=== PATIENT | female | born 1935 | race Caucasian/White ===

== ENCOUNTER 2023-11-27 00:48 | Inpatient (IN) | payer MEDICARE, BC, SELFPAY ==
[2023-11-26] VITALS (7 sets, daily range): BP systolic 100–174; BP diastolic 44–107; BMI 18.1
[2023-11-26] MEDS: ZOFRAN ODT (ORALLY DISINTEGRATING) 8 MG PO (16:12)
[2023-11-26] MEDS: DILAUDID 1 MG IM ×2 (16:12→19:55)
--- NOTE | 2023-11-26 17:24 | ED.GENMED ---
History of Present Illness
General
Chief Complaint: Musculo-Skeletal Complaint
Source: patient, records and family
Exam Limitations: none
Time Seen by Provider: 11/26/23 16:03
Nursing documentation reviewed up to this point in time: agreed with
History of Present Illness
History of Present Illness:
Patient is a 88-year-old eseln-lotv-sajghpet female presents to the emergency department complaining of left upper extremity pain. Patient fell prior to coming to the ER and injured her arm. Patient not remember striking her head but her niece
states there is a bruise on her scalp that was not there previously. Patient denies numbness or paresthesias. Patient denies any neck pain. Patient states her shoes got caught on the floor. Denies how she fell. Patient denies syncope, loss of
consciousness, nausea or vomiting. Patient denies any visual or speech changes. Patient denies focal weakness or ataxia. Patient denies chest pain, shortness of breath or palpitations. Patient denies any GI symptoms. Patient has a history of
right breast cancer with node dissection. Patient did receive radiation therapy.
Past History
Past History
ED Past Medical History: Arrthythmia, Cancer, HTN and Other (IBS)
Social History
Tobacco: Non-smoker
Review of Systems
Review of Systems
All Other Systems: Not applicable
Phy Exam
Physical Exam
Physical Exam:
Physical Exam
General: significant distress, alert and appropriate, elderly and frail, well hydrated
HENT: Normocephalic with approximately 2 cm area of ecchymosis to the left frontotemporal region. No tenderness., supple with no tracheal deviation or contusion
Eyes: Clear sclera, conjuctiva without injection
Heart: Regular rhythm and rate. No S3, S4. No murmur.
Lungs: No respiratory distress, no stridor, lung sounds clear and equal bilaterally, chest wall symmetrical and nontender
Abdomen: Soft, nontender, BS good
Neuro: Alert and usual mental status, CN II - XII intact, no motor focality
Skin: no wounds
Psychiatric: well kept. interactive and cooperative
Extremities: No edema, cyanosis. Left distal upper arm tenderness and fullness with swelling. Increased with any range of motion. Left shoulder and left forearm nontender. Neurovascularly intact. No hip or pelvic
tenderness
Musculoskeletal: No cervical, thoracic or lumbar spine tenderness
Course
Orders/Labs/Results
Orders:
Orders
11/26/23 16:08
HYDROmorphone [Dilaudid] 1 mg IM NOW STA
Ondansetron Orally Disint [Zofran Odt (Orally Disintegrating)] 8 mg PO NOW STA
Humerus, Left 2 Views [CR Humerus - Left Min 2 Views*] Urgent
Comment:
Reason For Exam: fall pain
11/26/23 17:25
CT Head W/o Iv Contrast Urgent
Comment:
Reason For Exam: fell with contusion left frontotemporal
Vital Signs
Initial and Last Documented VS:
Initial Vital Signs
Temp Pulse Resp BP Pulse Ox
97.8 F 68 18 161/69 100
11/26/23 15:41 11/26/23 15:41 11/26/23 15:41 11/26/23 15:41 11/26/23 15:41
Last Documented Vital Signs
Temp Pulse Resp BP Pulse Ox
97.8 F 68 18 174/60 97
11/26/23 15:41 11/26/23 15:41 11/26/23 15:41 11/26/23 17:00 11/26/23 17:45
*Radiology
Radiology exam reviewed: radiology read reviewed (Spiral fracture of the left humerus in addition to comminuted fracture of the humeral head)
*Pulse Oximetry
Patient hypoxic: no
*EKG
Interpreted by ED Provider?: NA
*Transportation Solutions Manager Interpretation
Rate: Transportation Solutions Manager- N/A
*Critical Care Note
Total Time (30-74mins, 75-104mins- exclusive of procedures): Not Applicable
Update Note
Update Note:
Spoke with Ortho who will see the patient tomorrow. Will splint in place and sling. Patient difficult with pain control. Patient lives alone. Patient will be admitted for pain control as well as possible operative management. Given the fact of
the patient's age and past medical history she will be admitted to the hospitalist.
ED Attending Note
-
Portions of this chart may have been created with voice recognition software.� Occasional wrong word or��sound alike� substitutions may have occurred due to the inherent limitations of voice recognition software.
Discharge Plan
Departure
Patient Disposition: Admit
Date of Disposition: 11/26/23
Time of Disposition: 19:35
Admit to: Med/Surg
Admit to doctor: Hospitalist
Presentation/result/management discussed w/ accepting MD/DO: Orthopedics
Patient with high blood pressure during this ER visit?: Yes
Condition: Fair
Covid-19: Not Applicable
Discharge Problem:
Displaced spiral fracture of shaft of left humerus, Closed comminuted fracture of left humerus
Prescriptions:
No Action
acetaminophen [Tylenol] 325 mg Tablet
325 mg PO Q6HPRN PRN (Reason: mild pain)
atenolol 25 mg Tablet
25 mg PO DAILY
carboxymethylcellulose sodium [Refresh Tears] 0.5 % Drops
1 drp BOTH EYES BIDPRN PRN (Reason: dry eyes)
bismuth subsalicylate [Pepto-Bismol] 262 mg Tablet,Chewable
2 tab PO QIDPRN PRN (Reason: GI issues)
lisinopril 2.5 mg Tablet
2.5 mg PO HS
biotin 1 mg Tablet
1 mg PO TID
Centrum Silver 0.4 mg-300 mcg- 250 mcg Tablet
1 tab PO DAILY
Visbiome 112.5 billion cell Capsule
1 cap PO DAILY
omega 5-qpb-jbm-fish oil [Fish Oil] 1,000 (120-180) mg Capsule
1 cap PO HS
Interventions
Interventions:
*Risk Screen - Suicide Last Done: 11/26/23 15:48
*General Assessment Last Done: 11/26/23 15:48
*Neglect/Abuse Screening Last Done: 11/26/23 15:48
*ED COVID-19 Vaccine History Last Done: 11/26/23 15:48
ED-Musculoskeletal Assessment Last Done: 11/26/23 15:48
Discharge Date and Time
Print Language: UKRAINIAN
[2023-11-26] MEDS: ZOFRAN ODT (ORALLY DISINTEGRATING) 4 MG PO (20:03)
[2023-11-26] MEDS: FLUSH (NSS) 1 FLUSH IV (22:07)
[2023-11-27] VITALS (9 sets, daily range): BP systolic 104–173; BP diastolic 59–88; PULSE 73–93; BMI 18.5
--- NOTE | 2023-11-27 01:09 | HPS.HSE ---
Family Physician
-
Family Physician: Geovanny Mittal [facility]
Chief Complaint
-
Well mechanical fall left upper extremity fracture
History of Present Illness
88-year-old independently ambulatory female with past medical history of hypertension, breast cancer status post lumpectomy and right sided lymph node dissection presents to ED with left upper extremity pain.
Patient had a fall and injured her arm. She had no loss of consciousness. She apparently caught her foot on the floor. She denied any striking of her head. She did have a bruise on her scalp
Knees. She has no headache, numbness or tingling. She has no neck pain. There has been no nausea or vomiting. No vision changes. She denied having any lightheadedness dizziness palpitations chest pain dyspnea and exertional shortness of breath.
In the ED she was afebrile, hemodynamically stable with a blood pressure of 103/47 and a pulse of 68 which is typical for her. X-ray shows a left spiral mid to distal diaphysis fracture as well as a nondisplaced fracture to the head and neck of the
proximal humerus. She was bit placed in a cast for immobilization. Surgery consulted but recommendations are pending at this time.
Medical History
Past Medical History
Past Medical History: Reports Cancer (Right breast cancer status postlumpectomy and lymph node dissection.) and HTN
Past Surgical History: Reports Other
Additional Past Surgical History:
Right lumpectomy and lymph node dissection
Social History
Tobacco: Non-smoker
Alcohol: Occasional
Drug: None
Personal: Single
Living: Alone
Employment: Retired
Family History
Family History: Not pertinent
Allergies / Home Medications
Allergies reflects when Allergies were last updated in Connect.
Home Medications with original date entered in Connect
Allergy/Medication List:
Allergies
Allergy/AdvReac Type Severity Reaction Status Date / Time
erythromycin base Allergy Mild Nausea Verified 11/26/23 15:51
[From E-Mycin]
Home Medications
atenolol 25 mg tablet 25 mg PO DAILY 11/26/23
biotin 1 mg tablet 1 mg PO TID 11/26/23
lisinopril 2.5 mg tablet 2.5 mg PO HS 11/26/23
Review of Systems
-
History Source: Patient
Constitutional: Reports No Symptoms
EENT: Reports No Symptoms
Respiratory: Reports No Symptoms
Cardiac: Reports No Symptoms
Abdomen/GI: Reports No Symptoms
: Reports No Symptoms
Musculoskeletal: Reports Other (left upper arm pain)
Skin: Reports No Symptoms
Neurological: Reports No Symptoms
Endocrine: Reports No Symptoms
Hematologic/Lymphatic: Reports No Symptoms
Psych: Reports No Symptoms
Physical Exam
Vital Signs
Vital Signs
Temp Pulse Resp BP Pulse Ox
97.8 F 68 18 103/45 96
11/26/23 15:41 11/26/23 15:41 11/26/23 15:41 11/26/23 22:09 11/26/23 22:11
Physical Exam
General: Well Nourished, Conversant and Pain
HEENT: NormoCephalic, Anicteric, Moist mucous membranes and Atraumatic
Respiratory: Clear
Cardiac: S1/S2 and Regular Rhythm
Breast: Deferred by me
GI: Soft, Non Tender, Non Distended and Normal Bowel Sounds
Rectal: Deferred by Provider
Genito-urinary: Deferred by me
Musculoskeletal: No Clubbing, No Cyanosis, No Edema and Other (immobilized left upper arm in cast. Intact distal radial pulses)
Skin: Warm
Neuro: AO x 3
Hematologic/Lymphatic: No Lymphadenopathy
Psych: Calm
Data Reviewed
-
Diagnostic Radiology: Report Reviewed by me
Old Records: Reviewed
Impression/Plan
-
IMPRESSION:
Patient with a displaced spiral fracture of the diaphysis of the left humerus as well as a closed commuted fracture of the left humerus. Here with pain and ambulatory dysfunction.
PLAN:
1. Humerus fracture -
- admit to med/surg
- consulted surgery, possible OR but no indication for such in am, place patient on regular diet
- left arm immobilization in cast and sling
- pain control and antiemetics
- PT evaluation
- care management
2. HTN
- atenolol 25 am, lisinopril 2.5 pm
DVT PPX - lovenox sq
Code Status - DNR
[2023-11-27] MEDS: MORPHINE SULFATE 1 MG IV (01:44)
--- NOTE | 2023-11-27 02:45 | PTCARENOTE ---
Pt arrived from ED at 2:30 post fall at a family member's home. Pt's X-ray reveals a spiral fracture of the mid to distal diaphysis of the left humerus and additional comminuted likely nondisplaced fracture of the head and neck of the proximal left
humerus. Pt's left upper arm is casted, nat wrapped & in a sling. A CT of the pt's head indicates no acute intracranial abnormality. However, there is a small left frontal scalp hematoma. Pt's niece Luz accompanied her from ED. Pt was given IV
morphine in the ED less than an hour before coming to the unit and has pain only with movement. Pt is AOx3, forgetful at times, her bed is in a low position with the bed alarm on & her call dunn is within reach.
[2023-11-27] MEDS: TYLENOL 650 MG PO ×6 (03:53→23:44)
[2023-11-27 06:40] LABS: Hematocrit 25.4 % (37.0-47.0); Mean Corp Hgb Conc. 35.4 g/dL (33.0-37.0); Mean Corpuscular Hgb 32.1 pg (27.0-31.0); Mean Corpuscular Volume 90.7 fL (81.0-99.0); Mean Platelet Volume 10.7 fL (7.4-10.4); Platelet Count 166 10^3/uL (130-400); Red Cell Dist. Width 13.8 % (11.5-14.5); White Blood Cell Count 9.9 10^3/uL (4.8-10.8)
[2023-11-27 06:45] LABS: INR 1.13; PT 14.3 Sec (11.4-14.6)
[2023-11-27 07:01] LABS: Blood Urea Nitrogen 32 mg/dl (7-17); Calcium 8.9 mg/dl (8.4-10.2); Carbon Dioxide 22 mmol/L (22-30); Chloride 97 mmol/L (98-107); Estimated Creatinine Clearance 36 ml/min; Glucose 173 mg/dl (70-99); Potassium 4.8 mmol/L (3.5-5.1); Sodium 133 mmol/L (135-145); eGFR > 60.00
--- NOTE | 2023-11-27 07:25 | PTCARENOTE ---
Pt had a near syncope event going to the bathroom. Pt was pivoted onto the toilet as she began to collapse. V/S taken were normal and will be recorded. CBG was 177. Pt did not lose consciousness. Pt also was listed as a DNR, refused the DNR
bracelet in ED, note made on ED nurse's note from ED. I also confirmed with the pt she wanted to be a FULL code. Dayshift nurse said she will reach out to the hospitalist today to change the pt's Code Status. Daysmtft nurse also aware of near
syncope event this morning.
[2023-11-27 07:37] LABS: Glucose - Point of Care 177 mg/dl (70-99)
[2023-11-27] MEDS: TENORMIN 25 MG PO (08:35)
--- NOTE | 2023-11-27 09:22 | W.PN.HOSP.TC ---
Today's Communication/Plan
-
see A/P
Assessment / Plan
Assessment / Plan
HPI: 88-year-old independent ambulatory female with past medical history of hypertension, breast cancer status post lumpectomy and right sided lymph node dissection; presented to ED with left upper extremity pain from a fall and injured her arm.
She had no loss of consciousness. She apparently caught her foot on the floor. She denied any striking of her head. She did have a bruise on her scalp
A/P:
# Mechanical fall with L Humerus fracture
X-ray shows a left spiral mid to distal diaphysis fracture
consulted ortho surgery, pending recc
Cont Left arm immobilization in cast and sling
Cont pain control with Tylenol, oxycodone, IV morphine and IV Dilaudid
Cont antiemetics PRN
PT OT evaluation
# HTN
Cont atenolol 25 am, lisinopril 2.5 pm, with holding parameters
# Presyncope, likely vasovagal from pain/fracture etc.
can check orthostatic VS if able to get
DVT PPX - lovenox sq
Code Status - DNR, confirmed with pt
DW RN
Anticipated Discharge: > 48 hours
Subjective/Interval History
-
Date of Service: November 27, 2023
Objective Data
-
Labs:
Laboratory Results
11/27/23
04:54
WBC 9.9
Hgb 9.0 L
Hct 25.4 L
Plt Count 166
PT 14.3
INR 1.13
Sodium 133 L
Potassium 4.8
Chloride 97 L
Carbon Dioxide 22
BUN 32 H
Creatinine 0.8
Glucose 173 H
Calcium 8.9
Vital Signs:
Vital Signs
Temp Pulse Resp BP Pulse Ox
36.7 C 114 18 112/59 97
11/27/23 07:00 11/27/23 07:00 11/27/23 07:00 11/27/23 07:00 11/27/23 07:00
I&O
11/26/23 11/27/23 11/28/23
06:59 06:59 06:59
Intake Total 240 / 240
Balance 240 / 240
Review of Systems
-
Musculoskeletal: Reports Joint Pain (RUE pain)
Physical Exam
-
General: Well Developed, Well Nourished, No Apparent Distress, Comfortable and Conversant; Negative Respiratory Distress
HEENT: Normocephalic, Atraumatic, Nose Appears Normal and Ears Appear Normal; Negative Oxygen
Respiratory: Clear to Auscultation and Non Labored Respirations; Negative Accessory Resp Muscle Use
Cardiac: Regular Rhythm and S1/S2
GI: Soft, Nontender, Nondistended and Normal Bowel Sounds
Musculoskeletal: Other (LUE in sling)
Skin: Warm and Dry
Neuro: Awake, Alert and Oriented
Psych: Calm and Intact Judgement/Insight
Data Reviewed
-
Diagnostic Radiology: Report Reviewed by me
Labs: Labs Reviewed by me
--- NOTE | 2023-11-27 10:32 | W.PN.UPDATE ---
Update Note
Progress Note Update
Patient seen and examined
88 yo F RHD left spiral distal humerus fracture, extra articular, non displaced left proximal humerus fracture
Plan for non op treatment
Non weight bearing left upper extremity in coapt splint and sling
pain control
PT/OT
Medical management per primary team
Formal consult note to follow
F/u outpatient in 7-10 days for alignment check consideration of transition to winkler brace
--- NOTE | 2023-11-27 11:22 | CM ---
Reviewed the chart notes and spoke with the patient at the bedside. The patient resides alone in a two story home with shower and bedroom on the first level. The patient reports no DME/VN/SNF in the past. The patient confirmed her pharmacy of
choice is the [facility]. Patient is NWB to [facility]. CM continues to be available to patient/family and is monitoring medical plan for needs at discharge.
Plan: Discharge plans will depend on PT/OT recommendations.
--- NOTE | 2023-11-27 12:28 | PTCARENOTE ---
Pt with near syncopal episode while ambulating with PT/OT to commode. Pt admits to ' seeing spots'. Dr Mcbride made aware and instructed RN to monitor for now. Care ongoing at this time.
--- NOTE | 2023-11-27 12:43 | PTCARENOTE ---
Conor wraps applied to B/l LEs per order.
[2023-11-27] MEDS: LOVENOX 30 MG SC (17:05)
[2023-11-27] MEDS: SENOKOT PO (20:35)
[2023-11-27] MEDS: COLACE PO (20:35)
[2023-11-27] MEDS: ZESTRIL 2.5 MG PO (21:11)
[2023-11-28] MEDS: TYLENOL 650 MG PO ×5 (04:48→20:26)
[2023-11-28 07:23] LABS: Hemoglobin 7.4 g/dL (12.0-16.0); Mean Corp Hgb Conc. 35.2 g/dL (33.0-37.0); Mean Corpuscular Hgb 31.5 pg (27.0-31.0); Mean Corpuscular Volume 89.4 fL (81.0-99.0); Mean Platelet Volume 10.4 fL (7.4-10.4); Platelet Count 138 10^3/uL (130-400); Red Blood Cell Count 2.35 10^6/uL (4.20-5.40); Red Cell Dist. Width 13.6 % (11.5-14.5); White Blood Cell Count 10.2 10^3/uL (4.8-10.8)
[2023-11-28 07:30] LABS: Blood Urea Nitrogen 31 mg/dl (7-17); Calcium 8.7 mg/dl (8.4-10.2); Carbon Dioxide 26 mmol/L (22-30); Chloride 95 mmol/L (98-107); Estimated Creatinine Clearance 41 ml/min; Glucose 113 mg/dl (70-99); Magnesium 1.8 mg/dl (1.6-2.3); Potassium 4.6 mmol/L (3.5-5.1); Sodium 127 mmol/L (135-145); eGFR > 60.00
[2023-11-28 07:35] VITALS: BP 104/58
[2023-11-28 07:58] LABS: Iron 62 ug/dl (37-170)
[2023-11-28] MEDS: SENOKOT PO ×2 (08:00→20:25)
[2023-11-28] MEDS: COLACE PO (08:01)
[2023-11-28] MEDS: TENORMIN PO (08:01)
[2023-11-28 08:07] LABS: Percent Saturation 22 % (20-50); Total Iron Binding Capacity 273 ug/dl (265-497)
--- NOTE | 2023-11-28 08:50 | W.PN.HOSP.TC ---
Addendum entered and electronically signed by Gege Mcbride MD 11/28/23 11:10:
# L Humerus fracture due to a combination of trauma and a pathological process
Addendum entered and electronically signed by Gege Mcbride MD 11/28/23 11:09:
# Cachectic
Original Note:
Today's Communication/Plan
-
see A/P
Assessment / Plan
Assessment / Plan
HPI: 88-year-old independent ambulatory female with past medical history of hypertension, breast cancer status post lumpectomy and right sided lymph node dissection; presented to ED with left upper extremity pain from a fall and injured her arm.
She had no loss of consciousness. She apparently caught her foot on the floor. She denied any striking of her head. She did have a bruise on her scalp
A/P:
# Mechanical fall with L Humerus fracture
X-ray shows left spiral mid to distal diaphysis fracture
ortho recc conservative Mx, Non-weight bearing left upper extremity in splint and sling
Cont pain control with Tylenol, oxycodone, IV morphine and IV Dilaudid
Cont antiemetics PRN
PT OT recc SNF
# L hand swelling due to L humerus fracture
Remove IV access on L hand
cont cold compress
monitor swelling
L radial pulse intact
# Acute anemia may be 2/2 humerus fracture
Hgb 9.0 on admission, today at 7.4
Monitor Hgb and transfuse as needed
Check iron panel etc.
# HTN
Cont ANAESTHESIOLOGIST atenolol 25 am, lisinopril 2.5 pm, with holding parameters
# Presyncope, likely vasovagal from pain/fracture etc.
orthostatic positive, started compression therapy
DVT PPX - Lovenox sq
Code Status - DNR, confirmed with pt
Dispo: eventual SNF
DW RN
Anticipated Discharge: > 48 hours
Subjective/Interval History
-
Date of Service: November 28, 2023
Objective Data
-
Labs:
Laboratory Results
11/28/23
06:50
WBC 10.2
Hgb 7.4 L
Hct 21.0 L
Plt Count 138
Sodium 127 L
Potassium 4.6
Chloride 95 L
Carbon Dioxide 26
BUN 31 H
Creatinine 0.7
Glucose 113 H
Calcium 8.7
Vital Signs:
Vital Signs
Temp Pulse Resp BP Pulse Ox
36.3 C 73 18 104/58 97
11/28/23 07:35 11/28/23 08:01 11/28/23 07:35 11/28/23 08:01 11/28/23 07:35
I&O
11/27/23 11/28/23 11/29/23
06:59 06:59 06:59
Intake Total 240 / 240 360 / 360
Output Total 1050 / 1050
Balance 240 / 240 -690 / -690
Review of Systems
-
Musculoskeletal: Reports Joint Swelling (L hand swelling )
Physical Exam
-
General: Well Developed, Well Nourished, No Apparent Distress, Comfortable and Conversant; Negative Respiratory Distress
HEENT: Normocephalic, Atraumatic, Nose Appears Normal and Ears Appear Normal; Negative Oxygen
Respiratory: Clear to Auscultation and Non Labored Respirations; Negative Accessory Resp Muscle Use
Cardiac: Regular Rhythm and S1/S2
GI: Soft, Nontender, Nondistended and Normal Bowel Sounds
Musculoskeletal: Other (LUE in sling, L hand swelling, intact L radial pulse )
Skin: Warm and Dry
Neuro: Awake, Alert and Oriented
Psych: Calm and Intact Judgement/Insight
Data Reviewed
-
Diagnostic Radiology: Image personally visualized and interpreted and Report Reviewed by me
Labs: Labs Reviewed by me
[2023-11-28 08:52] LABS: Ferritin 73.7 ng/ml (11.1-264.0)
[2023-11-28 09:24] LABS: Folate 18.5 ng/ml (2.76-20); Vitamin B12 898 pg/ml (239-931)
--- NOTE | 2023-11-28 09:32 | PN.CDI ---
CDI
- -
CDI:
Physician Documentation Request
Admit Date: 11/27/23 00:48
Dear Doctor Reed,
Patient admitted for humerus fracture.
Please review the following and provide your response in the progress notes.
Clinical Indicators:
Height: 5' 3'
Weight: 104 lbs
BMI:18.5
ER Physician documentation: 'elderly and frail'
If possible, please provide an associated diagnosis related to the abnormal BMI, such as:
Cachectic
Underweight
BMI is not significant
Other
BMI < or = to 19.9
Underweight
Weight Loss
Cachectic
Anorexia
Use of terms such as suspected, likely, concern for, or probable (associated with a specific diagnosis that is being evaluated, monitored, or treated as if it exists) are acceptable and can be coded in the inpatient setting, when documented at the
time of discharge.
Thank you,
Анна Reynolds RN, BSN
CDI Specialist
Available via [place] text
Please use your independent medical judgment in providing your response.
--- NOTE | 2023-11-28 09:42 | PN.CDI ---
CDI
- -
CDI:
Physician Documentation Request
Admit Date: 11/27/23 00:48
Dear Doctor Reed,
Patient admitted for humerus fracture.
ER Physician Documentation: 'Patient states her shoes got caught on the floor. Denies how she fell.'
Humerus XRay: 'There is a spiral fracture through the mid to distal diaphysis of the left humerus with mild lateral displacement of the major distal fracture fragment as well as a comminuted likely nondisplaced fracture through the neck and head of
the proximal left humerus.
There is some likely diffuse osteopenia.'
Please provide further specificity regarding the diagnosis of fracture:
Due to a combination of trauma and a pathological process but the trauma alone would not likely have been sufficient to cause the fracture
Traumatic
Other
Use of terms such as suspected, likely, concern for, or probable (associated with a specific diagnosis that is being evaluated, monitored, or treated as if it exists) are acceptable and can be coded in the inpatient setting, when documented at the
time of discharge.
Thank you,
Анна Reynolds RN, BSN
CDI Specialist
Available via [place] text
Please use your independent medical judgment in providing your response.
--- NOTE | 2023-11-28 12:05 | PTCARENOTE ---
Received patient this dayshift with +4 hand edema/ecchymotic, IV site was capped and ice was applied; At 09:05 Dr. Mcbride stated to pull IV site d/t edema and ok for patient to not have IV site at this time; at 12:05 Dr. Mcbride notified that patient's
niece in room and concerned about patient's left hand edema and bruising; I obtained a pulse ox on pointer and index finger 94-97%, they are cool to touch, ice being applied on/off 20 minutes, elevated on 1-2 pillows, edema had not gone down; niece
and patient concerned of possible clot as her mother had hx of clot; Dr. Mcbride ordered (L) ARM US; awaiting call from Ultrasound dept.
--- NOTE | 2023-11-28 14:08 | CM ---
PT OT reviewed evals recommend .
Spoke with pt and dgt in room .
Asked choice of SNF.
Requested [facility], ([facility] not a snf not placed.)
SNF in care port.
Left arm sling in placed.
PLAN To SNf after located
[2023-11-28 15:14] VITALS: BP 138/80
[2023-11-28] MEDS: LOVENOX 30 MG SC (17:12)
[2023-11-28] MEDS: ZESTRIL 2.5 MG PO (20:26)
[2023-11-28] MEDS: COLACE 100 MG PO (20:26)
--- NOTE | 2023-11-28 20:45 | PTCARENOTE ---
Pt ringing call dunn stating she feels her bruising in L hand has gotten worse and is draining more. Dsg appears saturated (from where old IV site was?), +3/+4 L hand edema, +1 L arm edema, +radial pulse. Hand and fingers ecchymotic. pt able to move
fingers and has good sensation in L hand. L arm elevated on pillow, new dsg applied to hand, fingers cool (pt has ice applied to hand) pulse ox 98-99% on all L hand fingers. Pt family continues to come out to hallway requesting pt be seen. QUALITY ASSURANCE SUPERVISOR CHASSIS
Favian made aware and Nursing supervisor belt and link assembly also made aware. QUALITY ASSURANCE SUPERVISOR CHASSIS and supervisor belt and link assembly at bedside to evaluate pt and to talk to family.
--- NOTE | 2023-11-28 22:24 | W.PN.UPDATE ---
Update Note
Progress Note Update
-Patient and family at bedside are concerning about LT hand swelling.
-Patient was admitted with LT humerus fracture that leads to hand swelling. Swelling was noted earlier today, LT arm US ordered, and IV line access was removed form the wrist and cold compress recommended.
-Patient had LT arm US result with limited study demonstrating due to the cast, no evidence of venous thrombus in the LUE above the level of the patient's cast.
-On exam, LT hand radial pulse is intact, normal skin temp, capillary refill, and sensation, Patient is able to move her fingers during the exam time.
-Will continue with the neurovascular checks, cold compresses and hand elevation.
-Discussed with the patient and family at bedside.
[2023-11-28 23:26] VITALS: BP 167/69
[2023-11-29] MEDS: TYLENOL PO ×3 (00:46→11:39)
[2023-11-29] MEDS: TYLENOL 650 MG PO ×5 (01:07→23:29)
[2023-11-29 04:35] VITALS: BP 165/89
[2023-11-29 06:45] LABS: Hematocrit 22.3 % (37.0-47.0); Hemoglobin 7.9 g/dL (12.0-16.0); Mean Corp Hgb Conc. 35.4 g/dL (33.0-37.0); Mean Corpuscular Hgb 32.9 pg (27.0-31.0); Mean Corpuscular Volume 92.9 fL (81.0-99.0); Mean Platelet Volume 10.9 fL (7.4-10.4); Platelet Count 150 10^3/uL (130-400); Red Cell Dist. Width 13.7 % (11.5-14.5); White Blood Cell Count 11.9 10^3/uL (4.8-10.8)
[2023-11-29 07:16] LABS: Blood Urea Nitrogen 26 mg/dl (7-17); Calcium 8.9 mg/dl (8.4-10.2); Carbon Dioxide 24 mmol/L (22-30); Chloride 92 mmol/L (98-107); Estimated Creatinine Clearance 41 ml/min; Glucose 100 mg/dl (70-99); Magnesium 1.9 mg/dl (1.6-2.3); Potassium 4.4 mmol/L (3.5-5.1); Sodium 129 mmol/L (135-145); eGFR > 60.00
[2023-11-29 07:40] VITALS: BP 153/84
[2023-11-29] MEDS: TENORMIN 25 MG PO (08:44)
[2023-11-29] MEDS: COLACE 100 MG PO (08:44)
[2023-11-29] MEDS: SENOKOT 17.2 MG PO (08:44)
--- NOTE | 2023-11-29 08:51 | PN.CDI ---
CDI
- -
CDI:
Physician Documentation Request
Admit Date: 11/27/23 00:48
Dear Doctor Reed,
Patient admitted for humerus fracture.
Laboratory Tests
11/27/23 11/28/23
04:54 06:50
Sodium 133 L 127 L
Based on the above, could you clarify in the progress notes, the appropriate diagnosis, if significant, that supports the above abnormalities and additional evaluation, monitoring and/or treatment rendered:
Hyponatremia
Abnormal lab value insignificant
Other
Use of terms such as suspected, likely, concern for, or probable (associated with a specific diagnosis that is being evaluated, monitored, or treated as if it exists) are acceptable and can be coded in the inpatient setting, when documented at the
time of discharge.
Thank you,
Анна Reynolds RN, BSN
CDI Specialist
Available via [place] text
Please use your independent medical judgment in providing your response.
--- NOTE | 2023-11-29 09:48 | W.PN.HOSP.TC ---
Addendum entered and electronically signed by Gege Mcbride MD 11/29/23 10:19:
# Hyponatremia
Original Note:
Today's Communication/Plan
-
see A/P
Assessment / Plan
Assessment / Plan
HPI: 88-year-old independent ambulatory female with past medical history of hypertension, breast cancer status post lumpectomy and right sided lymph node dissection; presented to ED with left upper extremity pain from a fall and injured her arm.
She had no loss of consciousness. She apparently caught her foot on the floor. She denied any striking of her head. She did have a bruise on her scalp
A/P:
# Mechanical fall with L Humerus fracture
X-ray shows left spiral mid to distal diaphysis fracture
ortho recc conservative Mx, Non-weight bearing left upper extremity in splint and sling
Cont pain control with Tylenol, PO oxycodone; DC further IV morphine/Dilaudid
Cont antiemetics PRN
PT OT recc SNF
# L hand swelling due to L humerus fracture
Removed IV access on L hand
cont cold compress
monitor swelling
L radial pulse intact
LUE US negative for DVT
# Acute anemia may be 2/2 humerus fracture
Hgb 9.0 on admission, then dropped to 7.4, today at 7.9
Monitor Hgb and transfuse as needed
iron panel/B12/folate levels acceptable
# HTN
Cont ASSISTANT FINANCE MANAGER atenolol 25 am, lisinopril 2.5 pm, with holding parameters
# Presyncope, likely vasovagal from pain/fracture etc.
orthostatic positive, started compression therapy
DVT PPX - Lovenox sq
Code Status - DNR, confirmed with pt
Dispo: eventual SNF
CHARITO RN
updated nephhaider Landrum on the phone
Anticipated Discharge: 24 - 48 hours
Subjective/Interval History
-
Date of Service: November 29, 2023
Objective Data
-
Labs:
Laboratory Results
11/29/23
04:49
WBC 11.9 H
Hgb 7.9 L
Hct 22.3 L
Plt Count 150
Sodium 129 L
Potassium 4.4
Chloride 92 L
Carbon Dioxide 24
BUN 26 H
Creatinine 0.7
Glucose 100 H
Calcium 8.9
Vital Signs:
Vital Signs
Temp Pulse Resp BP Pulse Ox
36.4 C 106 18 153/84 96
11/29/23 07:40 11/29/23 07:40 11/29/23 07:40 11/29/23 08:44 11/29/23 07:40
I&O
11/28/23 11/29/23 11/30/23
06:59 06:59 06:59
Intake Total 360 / 360 420 / 420
Output Total 1050 / 1050
Balance -690 / -690 420 / 420
Review of Systems
-
Musculoskeletal: Reports Joint Swelling (L hand swelling )
Physical Exam
-
General: Well Developed, Well Nourished, No Apparent Distress, Comfortable and Conversant; Negative Respiratory Distress
HEENT: Normocephalic, Atraumatic, Nose Appears Normal and Ears Appear Normal; Negative Oxygen
Respiratory: Clear to Auscultation and Non Labored Respirations; Negative Accessory Resp Muscle Use
Cardiac: Regular Rhythm and S1/S2
GI: Soft, Nontender, Nondistended and Normal Bowel Sounds
Musculoskeletal: Other (LUE in sling, L hand swelling, intact L radial pulse )
Skin: Warm and Dry
Neuro: Awake, Alert and Oriented
Psych: Calm and Intact Judgement/Insight
Data Reviewed
-
Diagnostic Radiology: Image personally visualized and interpreted and Report Reviewed by me
Labs: Labs Reviewed by me
--- NOTE | 2023-11-29 10:11 | CM ---
Reviewed the chart notes and spoke with the patient at the bedside. Updated patient on referrals that were sent to SNFs yesterday. CM spoke with Dora distributor of directories at [facility]. She requests a call back tomorrow morning regarding bed
availability. CM continues to be available to patient/family and is monitoring medical plan for needs at discharge.
Plan: Discharge to SNF/rehab prior to transitioning home. Hopefully [facility] will have a bed tomorrow for the patient.
[2023-11-29] MEDS: THERAGRAN 1 TABLET PO (10:20)
[2023-11-29 15:10] VITALS: BP 112/58; BP 148/74; PULSE 77
[2023-11-29 15:14] VITALS: BP 112/58; BP 148/74
[2023-11-29 15:20] VITALS: BP 160/62
[2023-11-29] MEDS: LOVENOX 30 MG SC (17:25)
[2023-11-29] MEDS: COLACE PO (20:11)
[2023-11-29] MEDS: SENOKOT PO (20:11)
[2023-11-29] MEDS: ZESTRIL 2.5 MG PO (21:30)
[2023-11-29 23:00] VITALS: BP 116/67
[2023-11-30] VITALS (10 sets, daily range): BP systolic 96–180; BP diastolic 55–75
[2023-11-30] MEDS: TYLENOL 650 MG PO ×6 (03:16→23:20)
[2023-11-30 06:26] LABS: Blood Urea Nitrogen 24 mg/dl (7-17); Calcium 8.6 mg/dl (8.4-10.2); Carbon Dioxide 24 mmol/L (22-30); Chloride 92 mmol/L (98-107); Estimated Creatinine Clearance 41 ml/min; Glucose 98 mg/dl (70-99); Magnesium 1.9 mg/dl (1.6-2.3); Potassium 4.4 mmol/L (3.5-5.1); Sodium 125 mmol/L (135-145); eGFR > 60.00
[2023-11-30 06:43] LABS: Hematocrit 18.6 % (37.0-47.0); Hemoglobin 6.7 g/dL (12.0-16.0); Mean Corpuscular Hgb 32.2 pg (27.0-31.0); Mean Corpuscular Volume 89.4 fL (81.0-99.0); Mean Platelet Volume 10.2 fL (7.4-10.4); Platelet Count 148 10^3/uL (130-400); Red Blood Cell Count 2.08 10^6/uL (4.20-5.40); Red Cell Dist. Width 13.8 % (11.5-14.5); White Blood Cell Count 12.8 10^3/uL (4.8-10.8)
--- NOTE | 2023-11-30 08:12 | VATNOTE ---
Called to place new IV for patient to be given blood products. Unable to use right arm due to lymph node removal previously, and left are swollen, ecchymotic, and weeping. TT sent to attending MD and requested foot IV order. If patient has further
IV needs, would recommend IR consult for placement of central line for stable IV access.
[2023-11-30] MEDS: TENORMIN PO (08:16)
[2023-11-30] MEDS: COLACE 100 MG PO ×2 (08:17→21:00)
[2023-11-30] MEDS: THERAGRAN 1 TABLET PO (08:18)
[2023-11-30] MEDS: SENOKOT 17.2 MG PO ×2 (08:18→21:00)
[2023-11-30] MEDS: ROXICODONE 5 MG PO (08:19)
--- NOTE | 2023-11-30 09:10 | W.PN.HOSP.TC ---
Today's Communication/Plan
-
see A/P
Assessment / Plan
Assessment / Plan
HPI: 88-year-old independent ambulatory female with past medical history of hypertension, breast cancer status post lumpectomy and right sided lymph node dissection; presented to ED with left upper extremity pain from a fall and injured her arm.
She had no loss of consciousness. She apparently caught her foot on the floor. She denied any striking of her head. She did have a bruise on her scalp
A/P:
# Mechanical fall with L Humerus fracture
X-ray shows left spiral mid to distal diaphysis fracture
ortho recc conservative Mx, Non-weight bearing left upper extremity in splint and sling
Cont pain control with Tylenol, PO oxycodone; DC further IV morphine/Dilaudid
Cont antiemetics PRN
PT OT recc SNF
# L hand swelling due to L humerus fracture
Removed IV access on L hand
cont cold compress
monitor swelling
L radial pulse intact, sensory/motor intact
LUE US negative for DVT
# Acute blood loss anemia may be 2/2 humerus fracture
Hgb 9.0 on admission, today at 6.7
transfuse 2 units PRBC
Monitor Hgb
iron panel/B12/folate levels acceptable indicating blood loss is acute
# HTN
Cont ASSISTANT BRANCH MANAGER atenolol 25 am, lisinopril 2.5 pm, with holding parameters
# Presyncope, likely vasovagal from pain/fracture etc.
orthostatic positive, started compression therapy
DVT PPX - SCD, DC Lovenox SQ
Code Status - DNR, confirmed with pt
Dispo: eventual SNF
CHARITO RN
updated niece Luz on the phone [phone]
acute blood loss anemia is a life critical condition
Anticipated Discharge: > 48 hours
Subjective/Interval History
-
Date of Service: November 30, 2023
Objective Data
-
Labs:
Laboratory Results
11/30/23
05:14
WBC 12.8 H
Hgb 6.7 L*
Hct 18.6 L*
Plt Count 148
Sodium 125 L
Potassium 4.4
Chloride 92 L
Carbon Dioxide 24
BUN 24 H
Creatinine 0.7
Glucose 98
Calcium 8.6
Vital Signs:
Vital Signs
Temp Pulse Resp BP Pulse Ox
36.9 C 102 14 96/69 100
11/30/23 07:34 11/30/23 07:34 11/30/23 07:34 11/30/23 08:16 11/30/23 07:34
I&O
11/29/23 11/30/23 12/01/23
06:59 06:59 06:59
Intake Total 420 / 420 900 / 1140 240 / 240
Balance 420 / 420 900 / 1140 240 / 240
Review of Systems
-
Musculoskeletal: Reports Joint Swelling (L hand swelling )
Physical Exam
-
General: Well Developed, Well Nourished, No Apparent Distress, Comfortable and Conversant; Negative Respiratory Distress
HEENT: Normocephalic, Atraumatic, Nose Appears Normal and Ears Appear Normal; Negative Oxygen
Respiratory: Clear to Auscultation and Non Labored Respirations; Negative Accessory Resp Muscle Use
Cardiac: Regular Rhythm and S1/S2
GI: Soft, Nontender, Nondistended and Normal Bowel Sounds
Musculoskeletal: Other (LUE in sling, L hand swelling, intact L radial pulse )
Skin: Warm and Dry
Neuro: Awake, Alert and Oriented
Psych: Calm and Intact Judgement/Insight
Data Reviewed
-
Diagnostic Radiology: Image personally visualized and interpreted and Report Reviewed by me
Labs: Labs Reviewed by me
--- NOTE | 2023-11-30 09:19 | CON.ORTHO ---
Consultation
-
Date/Time Consultation Performed: 11/26/2022 1015 AM
Consultation - Orthopedics
History
88 yo F presented to the ED s/p fall with complaints of left arm pain. She was subsequently diagnosed with a left humeral shaft fracture in addition to non displaced left proximal humerus fracture. She was admitted to the hospitalist service and
orthopedics was consulted for further evaluation and treatment. Patient reports sustaining a fall at home. She reports living alone and is quite independent at baseline. She does have some family nearby that help at home occasionally. She reports
tolerable pain that has improved somewhat after application of coaptation splint in the ED. She does complain of some swelling in her hand.
Allergies / Home Medications
PMH: breast cancer, htn
PSH: lumpectomy, lymph node dissection
Social hx: lives alone at home, non smoker
Family hx: not pertinent
Allergy/AdvReac Type Severity Reaction Status Date / Time
erythromycin base Allergy Mild Nausea Verified 11/26/23 15:51
[From E-Mycin]
�Medication �Instructions �Recorded
Lactobac no.2-Bifidobac no.1-S. 1 cap PO DAILY Gastrointestinal 11/26/23
thermo 112.5 billion cell capsule Issue
(Visbiome)
acetaminophen 325 mg tablet 325 mg PO Q6HPRN PRN mild pain 11/26/23
(Tylenol)
atenolol 25 mg tablet 25 mg PO DAILY Blood Pressure 11/26/23
biotin 1 mg tablet 1 mg PO TID Supplement 11/26/23
bismuth subsalicylate 262 mg 2 tab PO QIDPRN PRN GI issues 11/26/23
chewable tablet (Pepto-Bismol)
carboxymethylcellulose sodium 0.5 1 drp BOTH EYES BIDPRN PRN dry eyes 11/26/23
% eye drops (Refresh Tears)
lisinopril 2.5 mg tablet 2.5 mg PO HS Blood Pressure 11/26/23
asvnbthv-unj-itshv acid 0.4 1 tab PO DAILY Supplement 11/26/23
mg-lycopene 300 mcg-lutein 250 mcg
tablet (Centrum Silver)
omega 1-iid-oqy-fish oil 1,000 mg 1 cap PO HS 11/26/23
(120 mg-180 mg) capsule (Fish Oil)
Vital Signs / Lab Results
Temp Pulse Resp BP Pulse Ox
98.4 F 102 14 96/69 100
11/30/23 07:34 11/30/23 07:34 11/30/23 07:34 11/30/23 08:16 11/30/23 07:34
11/30/23 05:14
11/30/23 05:14
Examination
MSK LUE
Splint in place, some mild to moderate swelling in hand
SILT in all distributions distally including radial nerve
motor intact m/r/u/ain/pin, able to strongly retropulse thumb, extend wrist
BCR
No other areas of bony TTP or creitation of long bones or joints on tertiary exam
Assessment / Plan
88 yo F s/p mech fall with left extra articular spiral distal humeral shaft fracture with associated non displaced left proximal humerus fracture
NWB LUE in coapt splint and sling
pain control
dvt ppx: [facility] and chemper primary team
Medical management per primary team
pT/OT
Had a long discussion with patient regarding diagnosis and treatment options both surgical and non surgical. We mutually agreed to proceed with non op treatment . Alignment on radiographs is reasonable, certainly within acceptable non op tolerances.
Will plan for immobilization in coapt splint and sling and follow up in office in 7-10 days for repeat radiographs, alignment check and consideration of transition to winkler style brace.
--- NOTE | 2023-11-30 11:24 | CM ---
Patient seen at bedside.
Hgb 6.7 - order to transfuse 2 units PRBC
PT/OT recommend SNF, referrals in for [facility]
PLAN: Discharge when medically stable to SNF pending bed availability
[2023-11-30] MEDS: ZESTRIL 2.5 MG PO (21:00)
[2023-12-01] MEDS: ROXICODONE 5 MG PO (02:01)
[2023-12-01] MEDS: TYLENOL 650 MG PO ×5 (03:25→20:30)
[2023-12-01 07:45] VITALS: BP 187/117
[2023-12-01] MEDS: TENORMIN 25 MG PO (08:01)
[2023-12-01] MEDS: SENOKOT PO ×3 (08:02→20:32)
[2023-12-01] MEDS: THERAGRAN 1 TABLET PO (08:02)
[2023-12-01] MEDS: COLACE 100 MG PO ×2 (08:02→20:31)
[2023-12-01 10:05] VITALS: BP 172/105
[2023-12-01] MEDS: APRESOLINE 10 MG IV (10:12)
--- NOTE | 2023-12-01 11:23 | W.PN.HOSP.TC ---
Today's Communication/Plan
-
see A/P
Assessment / Plan
Assessment / Plan
HPI: 88-year-old independent ambulatory female with past medical history of hypertension, breast cancer status post lumpectomy and right sided lymph node dissection; presented to ED with left upper extremity pain from a fall and injured her arm.
She had no loss of consciousness. She apparently caught her foot on the floor. She denied any striking of her head. She did have a bruise on her scalp
A/P:
# Mechanical fall with L Humerus fracture
X-ray shows left spiral mid to distal diaphysis fracture
ortho recc conservative Mx, Non-weight bearing left upper extremity in splint and sling
Cont pain control with Tylenol, PO oxycodone; DC further IV morphine/Dilaudid
Cont antiemetics PRN
PT OT recc SNF
# L hand swelling due to L humerus fracture
Removed IV access on L hand
monitor swelling, improving
L radial pulse intact, sensory/motor intact
LUE US negative for DVT
# Acute blood loss anemia may be 2/2 humerus fracture
Hgb 9.0 on admission, today at 6.7
transfused 2 units PRBC
Monitor Hgb
iron panel/B12/folate levels acceptable indicating blood loss was acute
# HTN
Cont TUG MASTER atenolol 25 am, lisinopril 2.5 pm, with holding parameters
PO hydralazine PRN for SBP > 160
# Presyncope, likely vasovagal from pain/fracture etc.
orthostatic positive, started compression therapy
DVT PPX - SCD
Code Status - DNR, confirmed with pt
Dispo: eventual SNF
CHARITO RN, informed that L hand bleeding has improved
updated niece Luz on the phone [phone] 11/29
DW Niece and nephew at bedside
Anticipated Discharge: > 48 hours
Subjective/Interval History
-
Date of Service: December 01, 2023
Objective Data
-
Labs:
Laboratory Results
12/01/23
11:09
WBC Pending
Hgb Pending
Hct Pending
Plt Count Pending
Sodium Pending
Potassium Pending
Chloride Pending
Carbon Dioxide Pending
BUN Pending
Creatinine Pending
Glucose Pending
Calcium Pending
Vital Signs:
Vital Signs
Temp Pulse Resp BP Pulse Ox
36.4 C 68 16 172/105 98
12/01/23 07:45 12/01/23 10:12 12/01/23 10:05 12/01/23 10:12 12/01/23 07:45
I&O
11/30/23 12/01/23 12/02/23
06:59 06:59 06:59
Intake Total 900 / 1140 2780 / 2780 120 / 120
Balance 900 / 1140 2780 / 2780 120 / 120
Review of Systems
-
Musculoskeletal: Reports Joint Swelling (L hand swelling and improved )
Physical Exam
-
General: Well Developed, Well Nourished, No Apparent Distress, Comfortable and Conversant; Negative Respiratory Distress
HEENT: Normocephalic, Atraumatic, Nose Appears Normal and Ears Appear Normal; Negative Oxygen
Respiratory: Clear to Auscultation and Non Labored Respirations; Negative Accessory Resp Muscle Use
Cardiac: Regular Rhythm and S1/S2
GI: Soft, Nontender, Nondistended and Normal Bowel Sounds
Musculoskeletal: Other (LUE in sling, L hand swelling improving, intact L radial pulse )
Skin: Warm and Dry
Neuro: Awake, Alert and Oriented
Psych: Calm and Intact Judgement/Insight
Data Reviewed
-
Diagnostic Radiology: Image personally visualized and interpreted and Report Reviewed by me
Labs: Labs Reviewed by me
[2023-12-01 11:49] LABS: Blood Urea Nitrogen 16 mg/dl (7-17); Calcium 8.9 mg/dl (8.4-10.2); Carbon Dioxide 23 mmol/L (22-30); Chloride 91 mmol/L (98-107); Estimated Creatinine Clearance 48 ml/min; Glucose 111 mg/dl (70-99); Potassium 4.3 mmol/L (3.5-5.1); Sodium 127 mmol/L (135-145); eGFR > 60.00
[2023-12-01 11:54] LABS: Mean Corp Hgb Conc. 36.4 g/dL (33.0-37.0); Mean Corpuscular Hgb 30.8 pg (27.0-31.0); Mean Corpuscular Volume 84.8 fL (81.0-99.0); Mean Platelet Volume 9.6 fL (7.4-10.4); Platelet Count 187 10^3/uL (130-400); Red Blood Cell Count 3.89 10^6/uL (4.20-5.40); Red Cell Dist. Width 15.1 % (11.5-14.5)
[2023-12-01 15:00] VITALS: BP 114/74
[2023-12-01 15:12] VITALS: BP 114/74; PULSE 74
[2023-12-01] MEDS: ZESTRIL 2.5 MG PO (21:26)
[2023-12-01 23:38] VITALS: BP 198/88
[2023-12-02] MEDS: APRESOLINE 10 MG PO (00:11)
[2023-12-02] MEDS: TYLENOL 650 MG PO ×4 (00:11→21:36)
--- NOTE | 2023-12-02 02:46 | PTCARENOTE ---
Patient noted to have profuse serous drainage from posterior Left upper arm. Conor wrap around splint mostly saturated. Large draining blister found to posterior upper arm. house provider DIRECTOR OF ANCILLARY SERVICES to come up and assess patient at bedside.
--- NOTE | 2023-12-02 03:00 | PTCARENOTE ---
Luis Alberto Jaime at bedside to assess large blister to posterior upper arm. Suggested nursing apply appropriate dressing at this time and Ortho team will evaluate if/any need to take splint down. Blister drained spontaneously copious amount
of serous fluid. Area cleansed with saline as much as possible, adaptic drsg and ABD's pads placed, new nat wraps applied. Patient still with strong positive Left, radial pulse. No change in sensation; patient's arm and hand warm and patient able to
move all fingers to L hand at this time. Will cont to assess.
--- NOTE | 2023-12-02 03:23 | W.PN.UPDATE ---
Update Note
Progress Note Update
RN notified TRANSCRIPTION TYPIST, patient has a large blister at the posterior left upper arm, and oozing serous fluid. Patient seen and evaluated, noted part of bullae filled with clear fluid that has oozed serous drainage on to the splint dressing and on to a
eliel. Patient denies any muscle cramps,deep ache or burning pain, Denies numbness or tingling, able to wiggle finger, warm and + pulses. Assessment is limited due to the splint. Advise to protect skin with adaptic and ABD dressing, monitor for
signs of infection. Likely fracture blister, may need wound care consult.
[2023-12-02 05:19] VITALS: BP 167/71
[2023-12-02 05:27] LABS: Hematocrit 32.3 % (37.0-47.0); Hemoglobin 11.8 g/dL (12.0-16.0); Mean Corp Hgb Conc. 36.5 g/dL (33.0-37.0); Mean Corpuscular Hgb 31.3 pg (27.0-31.0); Mean Corpuscular Volume 85.7 fL (81.0-99.0); Mean Platelet Volume 9.2 fL (7.4-10.4); Platelet Count 166 10^3/uL (130-400); Red Blood Cell Count 3.77 10^6/uL (4.20-5.40); Red Cell Dist. Width 14.5 % (11.5-14.5); White Blood Cell Count 12.8 10^3/uL (4.8-10.8)
[2023-12-02 05:50] LABS: Blood Urea Nitrogen 14 mg/dl (7-17); Carbon Dioxide 21 mmol/L (22-30); Chloride 93 mmol/L (98-107); Estimated Creatinine Clearance 48 ml/min; Glucose 104 mg/dl (70-99); Potassium 4.2 mmol/L (3.5-5.1); Sodium 124 mmol/L (135-145); eGFR > 60.00
[2023-12-02 07:05] VITALS: BP 193/105
[2023-12-02 08:30] VITALS: BP 158/98
[2023-12-02] MEDS: TENORMIN 25 MG PO (08:36)
[2023-12-02] MEDS: SENOKOT 17.2 MG PO (08:37)
[2023-12-02] MEDS: COLACE 100 MG PO ×2 (08:37→21:36)
[2023-12-02] MEDS: THERAGRAN 1 TABLET PO (08:37)
--- NOTE | 2023-12-02 08:52 | W.PN.HOSP.TC ---
Today's Communication/Plan
-
see A/P
Assessment / Plan
Assessment / Plan
HPI: 88-year-old independent ambulatory female with past medical history of hypertension, breast cancer status post lumpectomy and right sided lymph node dissection; presented to ED with left upper extremity pain from a fall and injured her arm.
She had no loss of consciousness. She apparently caught her foot on the floor. She denied any striking of her head. She did have a bruise on her scalp
A/P:
# Mechanical fall with L Humerus fracture
X-ray shows left spiral mid to distal diaphysis fracture
ortho recc conservative Mx, Non-weight bearing left upper extremity in splint and sling
Cont pain control with Tylenol, PO oxycodone; DC further IV morphine/Dilaudid
Cont antiemetics PRN
PT OT recc SNF
# L hand swelling due to L humerus fracture, swelling has improved
Removed IV access on L hand
monitor swelling, improving
L radial pulse intact, sensory/motor intact
LUE US negative for DVT
# Acute blood loss anemia may be 2/2 humerus fracture
Hgb 9.0 on admission, then dropped to 6.7, transfused 2 units PRBC and Hgb improved to 11.8 today
Monitor Hgb
iron panel/B12/folate levels acceptable indicating blood loss was acute
# blistering of skin at back of L arm likely from contact with splint
wound care CS
# hyponatremia
sodium level 124 today,
monitor sodium level
cont regular diet, fluid restrict to 48 oz a day
# HTN
Cont RUGBY LEAGUE FOOTBALLER atenolol 25 am, lisinopril 2.5 pm, with holding parameters
PO hydralazine PRN for SBP > 160
# Presyncope, likely vasovagal from pain/fracture etc.
orthostatic positive, started compression therapy
DVT PPX- SCD
Code Status- DNR, confirmed with pt
Dispo: eventual SNF
DW RN
updated nimeg Luz on the phone [phone]\\
total time spent 51 min
Anticipated Discharge: > 48 hours
Subjective/Interval History
-
Date of Service: December 02, 2023
Objective Data
-
Labs:
Laboratory Results
12/02/23
04:57
WBC 12.8 H
Hgb 11.8 L
Hct 32.3 L
Plt Count 166
Sodium 124 L
Potassium 4.2
Chloride 93 L
Carbon Dioxide 21 L
BUN 14
Creatinine 0.5 L
Glucose 104 H
Calcium 9.0
Vital Signs:
Vital Signs
Temp Pulse Resp BP Pulse Ox
37.0 C 104 16 158/98 97
12/02/23 07:05 12/02/23 08:36 12/02/23 08:30 12/02/23 08:36 12/02/23 07:05
I&O
12/01/23 12/02/23 12/03/23
06:59 06:59 06:59
Intake Total 2780 / 2780 1500 / 1500
Balance 2780 / 2780 1500 / 1500
Review of Systems
-
Musculoskeletal: Reports Joint Swelling (L hand swelling has improved )
Physical Exam
-
General: Well Developed, Well Nourished, No Apparent Distress, Comfortable and Conversant; Negative Respiratory Distress
HEENT: Normocephalic, Atraumatic, Nose Appears Normal and Ears Appear Normal; Negative Oxygen
Respiratory: Clear to Auscultation and Non Labored Respirations; Negative Accessory Resp Muscle Use
Cardiac: Regular Rhythm and S1/S2
GI: Soft, Nontender, Nondistended and Normal Bowel Sounds
Musculoskeletal: Other (LUE in sling, L hand swelling improving, intact L radial pulse )
Neuro: Awake, Alert and Oriented
Psych: Calm and Intact Judgement/Insight
Data Reviewed
-
Diagnostic Radiology: Image personally visualized and interpreted and Report Reviewed by me
Labs: Labs Reviewed by me
[2023-12-02 10:41] VITALS: BP 174/67; PULSE 74
[2023-12-02] MEDS: TYLENOL PO ×2 (13:00→17:30)
[2023-12-02 15:39] VITALS: BP 157/87
[2023-12-02] MEDS: ZESTRIL 2.5 MG PO (21:36)
[2023-12-02] MEDS: SENOKOT PO ×2 (21:36→22:12)
[2023-12-02 23:25] VITALS: BP 179/89
[2023-12-03] MEDS: TYLENOL PO ×3 (01:10→12:30)
[2023-12-03] MEDS: APRESOLINE 10 MG PO (02:25)
[2023-12-03 03:50] VITALS: BP 150/72
[2023-12-03 06:00] VITALS: BMI 18.8
[2023-12-03 07:42] VITALS: BP 177/100
[2023-12-03 09:06] LABS: Hematocrit 31.1 % (37.0-47.0); Hemoglobin 11.3 g/dL (12.0-16.0); Mean Corp Hgb Conc. 36.3 g/dL (33.0-37.0); Mean Corpuscular Volume 88.1 fL (81.0-99.0); Mean Platelet Volume 9.1 fL (7.4-10.4); Platelet Count 204 10^3/uL (130-400); Red Blood Cell Count 3.53 10^6/uL (4.20-5.40); Red Cell Dist. Width 14.9 % (11.5-14.5); White Blood Cell Count 12.8 10^3/uL (4.8-10.8)
[2023-12-03 09:35] LABS: Blood Urea Nitrogen 15 mg/dl (7-17); Calcium 8.6 mg/dl (8.4-10.2); Carbon Dioxide 20 mmol/L (22-30); Chloride 90 mmol/L (98-107); Estimated Creatinine Clearance 48 ml/min; Glucose 132 mg/dl (70-99); Potassium 4.2 mmol/L (3.5-5.1); Sodium 122 mmol/L (135-145); eGFR > 60.00
[2023-12-03] MEDS: TYLENOL 650 MG PO ×4 (09:42→23:35)
[2023-12-03] MEDS: SENOKOT PO ×2 (09:54→20:03)
[2023-12-03] MEDS: TENORMIN 25 MG PO (09:54)
[2023-12-03] MEDS: COLACE PO (09:55)
[2023-12-03] MEDS: THERAGRAN 1 TABLET PO (09:55)
--- NOTE | 2023-12-03 10:14 | CM ---
Patient seen at bedside.
dx: fall at home, fx L humerus
Wound care nurse visiting patient.
Na 122 today, Hgb 11.8, BUN 20, Creat 0.5
Referrals in [facility], [facility] SNF
PLAN: SNF, pending bed availability
[2023-12-03 11:30] VITALS: BP 185/81; PULSE 68
--- NOTE | 2023-12-03 11:42 | WOUNDNOTE ---
L INNER UPPER ARM
--- NOTE | 2023-12-03 11:42 | WOUNDNOTE ---
L POSTERIOR UPPER ARM
--- NOTE | 2023-12-03 11:43 | WOUNDNOTE ---
L ARM WITH FLASH
--- NOTE | 2023-12-03 11:43 | WOUNDNOTE ---
L LATERAL POSTERIOR ARM
--- NOTE | 2023-12-03 11:45 | WOUNDNOTE ---
WON RN note: Patient admitted with spiral fracture of L humerus.
See H&P for complete history.
PMH: recent fall and injured L arm, HTN, IBS, UTI, L breast lumpectomy tx with radiation 1981.
Wound Location and type/assessment: Patient admitted with: L arm and hand with red/purple bruising and multiple draining blisters, +[address] with padding underneath/nat wrap, and sling. Despite padding patient developed linear
blister under L axilla from lip of splint. All other blisters suspect as a delayed result of edema. Nurse assisted with changing dressing and holding L arm. Nurse confirmed sacrum intact, patient sitting in chair.
Appetite: Good.
Pressure redistribution devices in place:Accumax.
Plan: Padded lip of splint that lays directly under L axilla with 1/4 piece of ABD pad. Linear blister applied vaseline gauze and silicone foam. Remainder of L arm applied Vaseline gauze to blisters, alginate, abd pad and dylon. soft cotton roll
surrounding dressing, nat wrap and splint with additional nat wrap to secure, then sling. Arm elevated on pillow. L hand applied adaptic and silicone foam.
Will confirm orders with Ortho MD Adams. Updated nurse Donna and supplies at bedside.
Updated care plan and will follow as needed.
Note to case management of equipment requested for discharge: VN if goes home.
Recommend follow up at wound care center upon discharge.
--- NOTE | 2023-12-03 11:48 | W.PN.HOSP.TC ---
Today's Communication/Plan
-
Monitor vital signs see plan
Sodium 122 today, consult nephrology
Check urine and serum studies
Pain control
PT/OT
Wound care
Assessment / Plan
Assessment / Plan
HPI: 88-year-old independent ambulatory female with past medical history of hypertension, breast cancer status post lumpectomy and right sided lymph node dissection; presented to ED with left upper extremity pain from a fall and injured her arm.
She had no loss of consciousness. She apparently caught her foot on the floor. She denied any striking of her head. She did have a bruise on her scalp
A/P:
# Mechanical fall with L Humerus fracture
X-ray shows left spiral mid to distal diaphysis fracture
ortho recc conservative Mx, Non-weight bearing left upper extremity in splint and sling
Cont pain control with Tylenol, PO oxycodone; DC further IV morphine/Dilaudid
Cont antiemetics PRN
PT OT recc SNF
# L hand swelling due to L humerus fracture, swelling has improved
Removed IV access on L hand
monitor swelling, improving
L radial pulse intact, sensory/motor intact
LUE US negative for DVT
# Acute blood loss anemia may be 2/2 humerus fracture
Hgb 9.0 on admission, then dropped to 6.7, transfused 2 units PRBC and Hgb improving
Monitor Hgb
iron panel/B12/folate levels acceptable indicating blood loss was acute
# blistering of skin at back of L arm likely from contact with splint
wound care CS
# hyponatremia
sodium level 122 today,
monitor sodium level; order serum and urine labs
cont regular diet, fluid restrict to 48 oz a day
# HTN
Cont JEWEL DIAMETER GAUGER atenolol 25 am, lisinopril 2.5 pm, with holding parameters
PO hydralazine PRN for SBP > 160
# Presyncope, likely vasovagal from pain/fracture etc.
orthostatic positive, started compression therapy
DVT PPX- SCD
Code Status- DNR, confirmed with pt
Dispo: eventual SNF
General: Well Developed, Well Nourished, No Apparent Distress, Comfortable and Conversant; Negative Respiratory Distress
HEENT: Normocephalic, Atraumatic, Nose Appears Normal and Ears Appear Normal; Negative Oxygen
Respiratory: Clear to Auscultation and Non Labored Respirations; Negative Accessory Resp Muscle Use
Cardiac: Regular Rhythm and S1/S2
GI: Soft, Nontender, Nondistended and Normal Bowel Sounds
Musculoskeletal: Other (LUE in sling, L hand swelling improving, intact L radial pulse )
Neuro: Awake, Alert and Oriented
Psych: Calm and Intact Judgement/Insight
I spent a total of 52 minutes with the patient or on the floor. More than 50% of this time involved counseling and coordination of care.
Anticipated Discharge: 24 - 48 hours
Subjective/Interval History
-
Date of Service: December 03, 2023
does get pain
Objective Data
-
Labs:
Laboratory Results
12/03/23
08:18
WBC 12.8 H
Hgb 11.3 L
Hct 31.1 L
Plt Count 204 D
Sodium 122 L
Potassium 4.2
Chloride 90 L
Carbon Dioxide 20 L
BUN 15
Creatinine 0.5 L
Glucose 132 H
Calcium 8.6
Vital Signs:
Vital Signs
Temp Pulse Resp BP Pulse Ox
98.1 F 107 14 177/100 99
12/03/23 07:42 12/03/23 07:42 12/03/23 07:42 12/03/23 07:42 12/03/23 07:42
I&O
12/02/23 12/03/23 12/04/23
06:59 06:59 06:59
Intake Total 1500 / 1500 480 / 480
Balance 1500 / 1500 480 / 480
[2023-12-03 12:46] VITALS: BP 185/81; PULSE 68
--- NOTE | 2023-12-03 12:47 | WOUNDNOTE ---
WON RN NOTE: Spoke with Dr. Adams, made aware of significant drainage and blistering on entire L upper arm and axilla near splint. approved of wound care and nat wrap. Would like splint to stay in place as long as possible. Requested dressing be
changed in 2 days and then patient to follow up with him in 7-10 days. If continues to have large amt of drainage, call Dr. Adams at [phone]. Will follow as needed.
[2023-12-03 14:37] LABS: Osmolality Serum 254 mOsm/kg (275-300)
[2023-12-03 15:22] VITALS: BP 186/81
--- NOTE | 2023-12-03 15:55 | W.CON.NEPH ---
Addendum entered and electronically signed by Raimundo Cueva MD 12/04/23 11:27:
hyponatremia only. not a more complex hyponatremia
Original Note:
Consultation
-
Date/Time Consultation Requested: 12/03/2023 2 PM
Date/Time Consultation Performed: 12/03/2023 3 PM
Requesting Provider: Dr. Akers
Performing Provider: Dr Cueva
Reason for Consultation: hyponatremia
Medical History
-
Chief Complaint: Fall, humeral fracture left
History of Present Illness:
This is an 88-year-old female with hypertension controlled on a multidrug regimen, breast cancer status post lumpectomy and right side lymph node dissection in remission, hyperlipidemia on fish oil therapy which is controlled. She was admitted
because she tripped and fell on her left arm. She came to the emergency room and was found to have a left spiral diaphysis fracture of the left humerus nondisplaced. Her sodium initially was noted to be low at 133 though this has worsened to 122
and we are asked to assist with management of the hyponatremia. She has been hypertensive during her admission.
Past Medical History
Hypertension, breast cancer, right lumpectomy, right lymph node dissection, hyperlipidemia, left humeral fracture,
Social History
Tobacco: Non-Smoker
Alcohol: Occasional
Family History
Family History: Not Pertinent
Allergies / Home Medications
Allergy/AdvReac Type Severity Reaction Status Date / Time
erythromycin base Allergy Mild Nausea Verified 11/26/23 15:51
[From E-Mycin]
�Medication �Instructions �Recorded �Confirmed �Type
Lactobac no.2-Bifidobac no.1-S. 1 cap PO DAILY Gastrointestinal 11/26/23 11/26/23 History
thermo 112.5 billion cell capsule Issue
(Visbiome)
acetaminophen 325 mg tablet 325 mg PO Q6HPRN PRN mild pain 11/26/23 11/26/23 History
(Tylenol)
atenolol 25 mg tablet 25 mg PO DAILY Blood Pressure 11/26/23 11/26/23 History
biotin 1 mg tablet 1 mg PO TID Supplement 11/26/23 11/26/23 History
bismuth subsalicylate 262 mg 2 tab PO QIDPRN PRN GI issues 11/26/23 11/26/23 History
chewable tablet (Pepto-Bismol)
carboxymethylcellulose sodium 0.5 1 drp BOTH EYES BIDPRN PRN dry eyes 11/26/23 11/26/23 History
% eye drops (Refresh Tears)
lisinopril 2.5 mg tablet 2.5 mg PO HS Blood Pressure 11/26/23 11/26/23 History
wqjadvlf-mag-upbcx acid 0.4 1 tab PO DAILY Supplement 11/26/23 11/26/23 History
mg-lycopene 300 mcg-lutein 250 mcg
tablet (Centrum Silver)
omega 0-wxr-fuc-fish oil 1,000 mg 1 cap PO HS 11/26/23 11/26/23 History
(120 mg-180 mg) capsule (Fish Oil)
Physical Exam
Vital Signs
Vital Signs
Temp Pulse Resp BP Pulse Ox
98.1 F 107 14 177/100 99
12/03/23 07:42 12/03/23 07:42 12/03/23 07:42 12/03/23 07:42 12/03/23 11:00
Lab Results
WBC 12.8 10^3/uL (4.8-10.8) H 12/03/23 08:18
RBC 3.53 10^6/uL (4.20-5.40) L 12/03/23 08:18
Hgb 11.3 g/dL (12.0-16.0) L 12/03/23 08:18
Hct 31.1 % (37.0-47.0) L 12/03/23 08:18
Plt Count 204 10^3/uL (130-400) D 12/03/23 08:18
Sodium 122 mmol/L (135-145) L 12/03/23 08:18
Potassium 4.2 mmol/L (3.5-5.1) 12/03/23 08:18
Chloride 90 mmol/L (98-107) L 12/03/23 08:18
Carbon Dioxide 20 mmol/L (22-30) L 12/03/23 08:18
BUN 15 mg/dl (7-17) 12/03/23 08:18
Creatinine 0.5 mg/dL (0.6-1.0) L 12/03/23 08:18
eGFR > 60.00 12/03/23 08:18
Glucose 132 mg/dl (70-99) H 12/03/23 08:18
Calcium 8.6 mg/dl (8.4-10.2) 12/03/23 08:18
Laboratory Tests
11/27/23
04:54
Sodium 133 L
Physical Exam
Patient is awake alert oriented and in no distress. Mood and affect were pleasant, insight and judgment were good. Pupils are equal round and reactive to light, extraocular movements are intact, sclera were anicteric. Hearing was normal, ears and
nose are intact. Oropharynx was clear. Neck was supple with trachea midline and no thyromegaly. Heart was regular rate and rhythm without rubs. Lower extremities with 2 edema. Left upper arm with 3+ edema and ecchymoses. lungs were clear to
auscultation bilaterally and with normal excursion. Abdomen was soft, nontender, with normal active bowel sounds, and no hepatosplenomegaly. Skin was without rash and with normal turgor.
Data Reviewed
-
Radiology: Report Reviewed by me (X-ray left arm on 11/26/2023 shows spiral fracture mid to distal left humerus)
Ultrasound: Report Reviewed by me (Upper extremity duplex on 11/28/2023 shows no DVT)
Labs: Labs Reviewed by me
Old Records: Requested
Assessment/Plan
-
Assessment
Left humeral fracture
Hyponatremia
Hypertension
Edema
Anemia
Plan
Fluid restriction 40 ounces
Check urine studies
Most likely excess ADH given fracture and pain we will give Samsca today.
Follow BMP
As needed medications for hypertension
Continue outpatient antihypertensive medications
[2023-12-03] MEDS: SAMSCA 15 MG PO (16:48)
[2023-12-03] MEDS: COLACE 100 MG PO (20:08)
[2023-12-03] MEDS: ZESTRIL 2.5 MG PO (22:20)
[2023-12-03] MEDS: ROXICODONE 5 MG PO (22:21)
[2023-12-03 22:29] LABS: Osmolality Urine 406 mOsm/kg (300-900)
[2023-12-03 22:36] LABS: Urine Sodium 15 mmol/L (30-90)
[2023-12-03 23:35] VITALS: BP 142/73
[2023-12-04] MEDS: TYLENOL 650 MG PO ×3 (03:39→13:01)
[2023-12-04 07:48] VITALS: BP 145/69
[2023-12-04 08:25] LABS: % Basophils 0.1 % (0-2); % Eosinophils 0.1 % (0-6); % Immature Granulocytes 0.9 % (0-0.5); % Monocytes 9.8 % (1.7-9.3); % Neutrophils 80.1 % (42.2-75.2); Absolute Immature Granulocytes 0.1 10^3/uL (0-0.05); Absolute Lymphocytes 1.3 10^3/uL (1.2-3.4); Absolute Monocytes 1.4 10^3/uL (0.1-0.6); Absolute Neutrophils 11.8 10^3/uL (1.4-6.5); Hematocrit 35.3 % (37.0-47.0); Hemoglobin 12.6 g/dL (12.0-16.0); Mean Corp Hgb Conc. 35.7 g/dL (33.0-37.0); Mean Corpuscular Volume 89.6 fL (81.0-99.0); Mean Platelet Volume 8.8 fL (7.4-10.4); Nucleated Red Blood Cells % 0 %; Platelet Count 226 10^3/uL (130-400); Red Blood Cell Count 3.94 10^6/uL (4.20-5.40); Red Cell Dist. Width 15.7 % (11.5-14.5); White Blood Cell Count 14.7 10^3/uL (4.8-10.8)
[2023-12-04 09:07] LABS: Blood Urea Nitrogen 17 mg/dl (7-17); Calcium 9.4 mg/dl (8.4-10.2); Carbon Dioxide 25 mmol/L (22-30); Chloride 98 mmol/L (98-107); Estimated Creatinine Clearance 48 ml/min; Glucose 100 mg/dl (70-99); Potassium 4.6 mmol/L (3.5-5.1); Sodium 135 mmol/L (135-145); eGFR > 60.00
[2023-12-04] MEDS: COLACE 100 MG PO (09:37)
[2023-12-04] MEDS: THERAGRAN 1 TABLET PO (09:37)
[2023-12-04] MEDS: TENORMIN 25 MG PO (09:37)
[2023-12-04] MEDS: SENOKOT 17.2 MG PO (09:37)
--- NOTE | 2023-12-04 10:05 | W.PN.NEPH.PH ---
Today's Communication / Plan
-
follow BMP
Assessment/Plan
-
Assessment
Left humeral fracture
Hyponatremia
Hypertension
Edema
Anemia
Plan
Fluid restriction 40 ounces continued
Follow BMP
BMP in 1 week if dc
Continue outpatient antihypertensive medications
-
-
Date of Service: December 04, 2023
CC / HPI / ROS
-
Chief Complaint:
hyponatremia
History of Present Illness:
Na up to 135 with samsca
BP stable
pain controlled
WBC still elevated
Review of Systems:
no CP/SOB
Labs
-
Labs:
WBC 14.7 10^3/uL (4.8-10.8) H 12/04/23 08:15
RBC 3.94 10^6/uL (4.20-5.40) L 12/04/23 08:15
Hgb 12.6 g/dL (12.0-16.0) 12/04/23 08:15
Hct 35.3 % (37.0-47.0) L 12/04/23 08:15
Plt Count 226 10^3/uL (130-400) 12/04/23 08:15
Sodium 135 mmol/L (135-145) D 12/04/23 08:15
Potassium 4.6 mmol/L (3.5-5.1) 12/04/23 08:15
Chloride 98 mmol/L (98-107) 12/04/23 08:15
Carbon Dioxide 25 mmol/L (22-30) 12/04/23 08:15
BUN 17 mg/dl (7-17) 12/04/23 08:15
Creatinine 0.6 mg/dL (0.6-1.0) 12/04/23 08:15
eGFR > 60.00 12/04/23 08:15
Glucose 100 mg/dl (70-99) H 12/04/23 08:15
Calcium 9.4 mg/dl (8.4-10.2) 12/04/23 08:15
Physical Exam
-
Vital Signs:
Vital Signs
Temp Pulse Resp BP Pulse Ox
98 F 66 14 145/69 100
12/04/23 07:48 12/04/23 09:37 12/04/23 07:48 12/04/23 09:37 12/04/23 07:48
Cardiovascular:: Regular rate and rhythm
Respiratory:: Bilateral: CTA
Lung Excursion:: Normal
Abdomen:: Nontender and Soft
Bowel Sounds:: Normal
Extremity Edema:: None: Bilateral:
--- NOTE | 2023-12-04 10:39 | CM ---
Addendum entered by Shayy Wilson RN 12/04/23 12:44:
Covid screen required, attending ordered, awaiting results.
Plan: Discharge to [facility]. Patient has decided to go by wheelchair van.
Transportation options and estimation of wheelchair van costs explained (approx. $100 to $130 est) and accepted.
Call report to: [phone]
Fax report to: [phone]
Transport form on chart.
Original Note:
Reviewed the chart notes and spoke with the patient at the bedside. IMM reviewed and placed on chart. Discussed with patient that [facility] has a bed to offer, patient agreeable. Discussed transportation options of wheelchair van at private
pay or having someone transport. Patient would prefer to have a friend transport her to [facility] at discharge. TT to attending inquiring if patient stable and ready for discharge. CM continues to be available to patient/family and is
monitoring medical plan for needs at discharge.
Plan: Discharge to [facility] when medically stable and bed available.
--- NOTE | 2023-12-04 10:57 | W.PN.HOSP.TC ---
Today's Communication/Plan
-
monitor vitals
see plan
dc today
follow bmp outpatient
time of discharge 38 minutes
Assessment / Plan
Assessment / Plan
HPI: 88-year-old independent ambulatory female with past medical history of hypertension, breast cancer status post lumpectomy and right sided lymph node dissection; presented to ED with left upper extremity pain from a fall and injured her arm.
She had no loss of consciousness. She apparently caught her foot on the floor. She denied any striking of her head. She did have a bruise on her scalp
A/P:
# Mechanical fall with L Humerus fracture
X-ray shows left spiral mid to distal diaphysis fracture
ortho recc conservative Mx, Non-weight bearing left upper extremity in splint and sling
Cont pain control with Tylenol, PO oxycodone; DC further IV morphine/Dilaudid
Cont antiemetics PRN
PT OT recc SNF
# L hand swelling due to L humerus fracture, swelling has improved
Removed IV access on L hand
monitor swelling, improving
L radial pulse intact, sensory/motor intact
LUE US negative for DVT
# Acute blood loss anemia may be 2/2 humerus fracture
Hgb 9.0 on admission, then dropped to 6.7, transfused 2 units PRBC and Hgb improving
Monitor Hgb
iron panel/B12/folate levels acceptable indicating blood loss was acute
# blistering of skin at back of L arm likely from contact with splint
wound care CS
# hyponatremia
sodium was 122; corrected to 135 after samsca; discussed with Dr Cueva and he is not concerned and is ok with patient going to rehab today with repeat BMP
monitor sodium level; order serum and urine labs
cont regular diet, fluid restrict to 40 oz a day
# HTN
Cont [employer] atenolol 25 am, lisinopril 2.5 pm, with holding parameters
PO hydralazine PRN for SBP > 160
# Presyncope, likely vasovagal from pain/fracture etc.
orthostatic positive, started compression therapy
DVT PPX- SCD
Code Status- DNR, confirmed with pt
Dispo: eventual SNF
General: Well Developed, Well Nourished, No Apparent Distress, Comfortable and Conversant; Negative Respiratory Distress
HEENT: Normocephalic, Atraumatic, Nose Appears Normal and Ears Appear Normal; Negative Oxygen
Respiratory: Clear to Auscultation and Non Labored Respirations; Negative Accessory Resp Muscle Use
Cardiac: Regular Rhythm and S1/S2
GI: Soft, Nontender, Nondistended and Normal Bowel Sounds
Musculoskeletal: Other (LUE in sling, L hand swelling improving, intact L radial pulse )
Neuro: Awake, Alert and Oriented
Psych: Calm and Intact Judgement/Insight
Anticipated Discharge: Today
Subjective/Interval History
-
Date of Service: December 04, 2023
denies pain
Objective Data
-
Labs:
Laboratory Results
12/04/23
08:15
WBC 14.7 H
Hgb 12.6
Hct 35.3 L
Plt Count 226
Sodium 135 D
Potassium 4.6
Chloride 98
Carbon Dioxide 25
BUN 17
Creatinine 0.6
Glucose 100 H
Calcium 9.4
Vital Signs:
Vital Signs
Temp Pulse Resp BP Pulse Ox
98 F 66 14 145/69 100
12/04/23 07:48 12/04/23 09:37 12/04/23 07:48 12/04/23 09:37 12/04/23 07:48
I&O
12/03/23 12/04/23 12/05/23
06:59 06:59 06:59
Intake Total 480 / 480 2099
Balance 480 / 480 2099
--- NOTE | 2023-12-04 11:02 | PN.CDI ---
CDI
- -
CDI:
Physician Documentation Request
Admit Date: 11/27/23 00:48
Dear Doctor Anay,
12/02 Nephrology consult for hyponatremia states 'Most likely excess ADH given fracture and pain we will give Samsca today.'
Laboratory Tests
12/03/23 12/03/23
08:18 18:10
Serum Osmolality 254 L
Urine Osmolality 406
Urine Creatinine 50.000
Urine Sodium 15 L
Please clarify:
Hyponatremia only
SIADH
Other
Use of terms such as suspected, likely, concern for, or probable (associated with a specific diagnosis that is being evaluated, monitored, or treated as if it exists) are acceptable and can be coded in the inpatient setting, when documented at the
time of discharge.
Thank you,
Angela Grey RN, BSN
CDI Specialist
tiger text
Please use your independent medical judgment in providing your response.
--- NOTE | 2023-12-04 11:08 | W.DCSUMMARY ---
Discharge Summary
Discharge Data
Date of Admission: 11/27/23
Date of Discharge: 12/04/23
-
Pending Results: No
Hospital Course
88-year-old female with past medical history of hypertension, breast cancer status post lumpectomy and right sentinel lymph node removal, hyponatremia, hypertension came to the hospital with mechanical fall with left humerus fracture. Patient was
seen by orthopedics throughout hospitalization. Patient was recommended conservative management with nonweightbearing left upper extremity in splint and sling. Patient was also evaluated by physical therapy who recommended SNF. Patient did had
left upper extremity blisters which was likely thought was secondary to her recent fracture. Patient was seen by wound care on this hospitalization. She also had acute blood loss anemia secondary to the fracture where she required blood
transfusion. Her hemoglobin continue to improve prior to discharge. She also had hyponatremia for which she was seen by nephrology and was given Samsca. On discharge she will instructed to get repeat BMP outpatient. Once her symptoms continue to
improve, she was then discharged to SNF with instructions to follow-up with all her physicians outpatient.
Discharge Plan
-
Patient Disposition: Prison/SNF
Discharge Diagnosis/Procedures: Mechanical fall with Left Humerus fracture;
Left hand swelling due to L humerus fracture;
Acute anemia due to fracture
Hyponatremia
Condition: Fair
Diet: As tolerated and Other diet
Additional Diets: restrict fluids to 40 ounce
Activity: As tolerated
Additional Activity: Non-weight bearing of left upper extremity, keep in splint and sling
Driving Restrictions: No driving
Blood Work: BMP next week
Activity Restrictions/Additional Instructions:
Patient discharge sodium is 135. Please repeat BMP at SNF and make sure it is appropriately improving.
Referrals:
Raimundo Cueva MD [Active] -
Geovanny Flannery MD [Family Provider] - in less than 1 week
Rashel dAams MD [Active] - in less than 1 week
Prescriptions:
New
sennosides [Senna Laxative] 8.6 mg Tablet
17.2 mg PO BID Qty: 0 0RF
docusate sodium 100 mg Capsule
100 mg PO BID Qty: 0 0RF
oxycodone 5 mg Tablet
5 mg PO Q4HPRN PRN (Reason: mild pain) Qty: 12 0RF
Refresh Classic (PF) 1.4-0.6 % Dropperette
1 drops ophthalmic (eye) QIDPRN PRN (Reason: dry eyes) Qty: 0 0RF
multivitamin with folic acid [Tab-A-Anca] 400 mcg Tablet
1 tab PO DAILY Qty: 1 0RF
Continued
atenolol 25 mg Tablet
25 mg PO DAILY
carboxymethylcellulose sodium [Refresh Tears] 0.5 % Drops
1 drp BOTH EYES BIDPRN PRN (Reason: dry eyes)
bismuth subsalicylate [Pepto-Bismol] 262 mg Tablet,Chewable
2 tab PO QIDPRN PRN (Reason: GI issues)
lisinopril 2.5 mg Tablet
2.5 mg PO HS
biotin 1 mg Tablet
1 mg PO TID
Centrum Silver 0.4 mg-300 mcg- 250 mcg Tablet
1 tab PO DAILY
Visbiome 112.5 billion cell Capsule
1 cap PO DAILY
omega 8-rxv-lmo-fish oil [Fish Oil] 1,000 (120-180) mg Capsule
1 cap PO HS
Changed
acetaminophen [Tylenol] 325 mg Tablet
650 mg PO Q6HPRN PRN (Reason: mild pain) Qty: 0 0RF
Discharge Orders:
Discharge Patient (As Directed); Ordered 12/04/23
Ordered By: Gualberto Akers
Discharge Date and Time
Discharge Date/Time: 12/04/23 15:14
Print Language: WALLISIAN
[2023-12-04 13:21] LABS: COVID-19 Antigen Negative (Negative)
--- NOTE | 2023-12-04 13:40 | PTCARENOTE ---
Gave report to Donna from [facility].
[2023-12-04 14:00] VITALS: BP 133/61
== END 2023-12-04 15:14 | DRG 543 ==
LOC: 2 SOUTH 00:48
PROVIDERS: Internal Medicine; ADMITTING PHYSICIAN Internal Medicine; ATTENDING PHYSICIAN Internal Medicine; CONSULT PHYSICIAN Orthopaedic Surgery; CONSULT PHYSICIAN Specialist; EMERGENCY PHYSICIAN Emergency Medicine; FAMILY PHYSICIAN Family Medicine
PROC: 30233N1 Transfusion of Nonautologous Red Blood Cells into Peripheral Vein, Percutaneous Approach (ICD-10-PCS; 2023-11-30)
DX: M84.422A Pathological fracture, left humerus, initial encounter for fracture (principal); D62 Acute posthemorrhagic anemia; R64 Cachexia; Z68.1 Body mass index [BMI] 19.9 or less, adult; E87.1 Hypo-osmolality and hyponatremia; I10 Essential (primary) hypertension; Z66 Do not resuscitate; E78.5 Hyperlipidemia, unspecified; S00.03XA Contusion of scalp, initial encounter; W01.0XXA Fall on same level from slipping, tripping and stumbling without subsequent striking against object, initial encounter; Y92.009 Unspecified place in unspecified non-institutional (private) residence as the place of occurrence of the external cause; Z79.899 Other long term (current) drug therapy; Z85.3 Personal history of malignant neoplasm of breast; Z88.1 Allergy status to other antibiotic agents
CPT/HCPCS: 29125; 70450; 73060; 80048; 82570; 82607; 82728; 82746; 82962; 83540; 83550; 83735; 83930; 83935; 84300; 85025; 85027; 85610; 86850; 86900; 86901; 86920; 87811; 93971; 96372; 97116; 97163; 97167; 97530; 97535; 99285; P9016